=== PATIENT | male | born 2000 | race American Indian/Alaskan Native ===

== ENCOUNTER 2021-04-22 19:30 | Emergency (ER) | payer OTHER ==
[2021-04-22 20:21] VITALS: BP 145/96
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
== END 2021-04-22 22:37 | disposition home or self-care (01) ==
LOC: ED 19:30
DX: S69.92XA Unspecified injury of left wrist, hand and finger(s), initial encounter (principal); X58.XXXA Exposure to other specified factors, initial encounter; Y93.89 Activity, other specified; Y92.89 Other specified places as the place of occurrence of the external cause; Y99.8 Other external cause status
CPT/HCPCS: 99283

== ENCOUNTER 2021-06-20 07:55 | Emergency (ER) | payer OTHER ==
[2021-06-20 08:22] VITALS: BP 151/97
--- NOTE | 2021-06-20 10:34 | XRay Report ---
LEFT WRIST 3 VIEWS INDICATION / CLINICAL INFORMATION: Left wrist pain after fall. COMPARISON: None available. FINDINGS: BONES and JOINT(S): There is an acute minimally displaced transverse fracture through the scaphoid wa ist. No other displaced fracture or dislocation. No significant arthritis. SOFT TISSUES: Moderate generalized edema is noted without other significant abnormalities. ADDITIONAL FINDINGS: None. IMPRESSION: 1. Acute left scaphoid fracture. Signer Name: Saul Cardona MD Signed: 06/20/2021 10:30 AM Workstation Name: [id number]
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
== END 2021-06-20 18:24 | disposition home or self-care (01) ==
LOC: ED 07:55
DX: S62.002A Unspecified fracture of navicular [scaphoid] bone of left wrist, initial encounter for closed fracture (principal); X58.XXXA Exposure to other specified factors, initial encounter; Y93.89 Activity, other specified; Y92.89 Other specified places as the place of occurrence of the external cause; Y99.8 Other external cause status
CPT/HCPCS: 99284